=== PATIENT | female | born 1975 | race Caucasian/White ===

== ENCOUNTER 2021-01-30 12:02 | Emergency (ER) | payer OTHER ==
[2021-01-30 12:10] VITALS: BP 136/88; PULSE 96; TEMP 97.5; BMI 30.1
[2021-01-30] MEDS ORDERED: CEFTRIAXONE 2,000 MG in DEXTROSE 5%-WATER - 50 ML IVPB ONE (13:15)
[2021-01-30] MEDS ORDERED: SODIUM CHLORIDE 0.9% 500 ML INFUS.BAG IV ONE (13:15)
[2021-01-30] MEDS ORDERED: CEFTRIAXONE 2 GM/100 ML BAG IVPB ONE ×2 (13:25→13:31)
[2021-01-30] MEDS ORDERED: KETOROLAC TROMETHAMINE 30 MG/1 ML VIAL IM ONE (13:25)
[2021-01-30] MEDS ORDERED: KETOROLAC TROMETHAMINE 30 MG/1 ML VIAL ONE (13:33)
[2021-01-30 13:49] LABS: BASO % 0.5 % (0-2.0); EOS % 0.5 % (0-4.5); HEMATOCRIT 41.1 % (32.4-45.2); HEMOGLOBIN 14.1 GM/dL (10.7-15.3); LYMPH % 16.9 % (8-40); MCH 30.6 pg (25.7-33.7); MCHC 34.2 g/dl (32.0-36.0); MEAN CELL VOLUME 89.5 fl (80-96); MEAN PLT VOLUME 8.2 fl (7.5-11.1); MONO % 5.1 % (3.8-10.2); PLATELET COUNT 211 10^3/uL (134-434); RBC 4.59 M/mm3 (3.60-5.2); RDW 14.2 % (11.6-15.6); WHITE BLOOD COUNT 11.2 K/mm3 (4.0-10.0)
[2021-01-30 14:08] LABS: ALBUMIN 3.5 g/dl (3.4-5.0); BLOOD UREA NITROGEN 12.5 mg/dL (7-18); CALCIUM 8.8 mg/dL (8.5-10.1)
[2021-01-30 14:12] LABS: CREATININE 0.7 mg/dL (0.55-1.3)
[2021-01-30 14:13] LABS: BILIRUBIN,TOTAL 0.6 mg/dL (0.2-1); TOT PROT 7.1 g/dl (6.4-8.2)
== END 2021-01-30 15:23 | disposition home or self-care (01) ==
LOC: JER 12:02
PROC: 3E0233Z Introduction of Anti-inflammatory into Muscle, Percutaneous Approach (ICD-10-PCS; principal; 2021-01-30)
PROC: 3E03329 Introduction of Other Anti-infective into Peripheral Vein, Percutaneous Approach (ICD-10-PCS; 2021-01-30)
DX: K08.89 Other specified disorders of teeth and supporting structures (principal)
CPT/HCPCS: 36415; 80053; 85025; 99284-25